=== PATIENT | female | born 1995 | race Caucasian/White ===

== ENCOUNTER 2016-03-04 08:53 | Emergency (ER) | END 2016-03-04 09:35 | disposition home or self-care (01) | DX: K62.5 Hemorrhage of anus and rectum (principal) ==

== ENCOUNTER 2016-06-15 22:37 | Emergency (ER) | payer OTHER ==
[~2016-06-15] VITALS: Ht 154.9 cm; Wt 56.0 kg
[~2016-06-15 22:37] MED LIST: DOCU-144 PO; HYDR25SU23 PR; IBUP-1542 PO
[2016-06-15 22:41] VITALS: Ht 154.9 cm; Wt 56.0 kg
[2016-06-15] MEDS ORDERED: PRED20TA PO (23:08)
[2016-06-15] MEDS ORDERED: TR1B60 TOP (23:09)
[2016-06-15] MEDS ORDERED: CETI10CA PO (23:09)
[2016-06-15] MEDS ORDERED: FAMO-18 PO (23:09)
--- NOTE | 2016-06-15 23:17 | ERD ---
ER Documentation Chief Complaint Date/Time DATE: 06/15/16 TIME: 23:12 Chief Complaint body rash x 1 month HPI Patient is a 21-year-old female who presents to the ED with rash on and off for the last month. She states that she developed a rash on her face and arms about a month ago and went to her primary care and was given Benadryl and hydrocortisone cream. She states that it helped with her symptoms however she developed a rash on her abdomen and now her upper arms in the last 2 days. She denies fever or chills. She denies abdominal pain nausea, vomiting or diarrhea. She denies tongue or lip swelling. She denies shortness of breath or difficulty breathing. She denies recent change in soaps or hygiene products or recent travel. She denies chest pain, shortness of breath. She denies leg pain or leg swelling. She has no other complaints. ROS All systems reviewed and are negative except as per history of present illness. Medications Home Meds Active Scripts Famotidine* (Pepcid*) 20 Mg Tablet, 20 MG PO BID for 10 Days, TAB Prov:KYLE TAI PA-C 06/15/16 Triamcinolone Acetonide (Triamcinolone Acetonide) 0.1% - 60 Ml Lotion, 1 APPLIC TOP BID, #1 BOTTLE Prov:KYLE TAI PA-C 06/15/16 Cetirizine Hcl* (Zyrtec*) 10 Mg Capsule, 10 MG PO DAILY, #20 TAB.CHEW Prov:KYLE TAI PA-C 06/15/16 Prednisone* (Prednisone*) 20 Mg Tab, 40 MG PO DAILY for 4 Days, TAB Prov:KYLE TAI PA-C 06/15/16 Hydrocortisone Acetate (Anusol-Hc) 25 Mg Supp.rect, 1 SUPP [place] QHS Y for HEMORROID PAIN/ITCHING, #12 SUPP.RECT Prov:MONALISA BANEGAS MD 03/04/16 Docusate Sodium* (Colace*) 100 Mg Capsule, 100 MG PO BID, #10 CAP Prov:JAVIER ZHANG NP 12/31/15 Ibuprofen* (Motrin*) 600 Mg Tab, 600 MG PO Q8, #30 TAB Prov:JAVIER ZHANG NP 12/31/15 Allergies Allergies: Coded Allergies: No Known Allergy (Unverified , 06/15/16) PMhx/Soc Medical and Surgical Hx: pt denies Medical Hx, pt denies Surgical Hx History of Surgery: No Anesthesia Reaction: No Hx Neurological Disorder: No Hx Respiratory Disorders: No Hx Cardiac Disorders: No Hx Psychiatric Problems: No Hx Miscellaneous Medical Probl: No Hx Alcohol Use: No Hx Substance Use: No Hx Tobacco Use: No Smoking Status: Never smoker FmHx Family History: No coronary disease, No diabetes, No other Physical Exam Vitals Vital Signs Date Time Temp Pulse Resp B/P Pulse Ox O2 Delivery O2 Flow Rate FiO2 06/15/16 22:41 98.2 105 20 135/65 100 Physical Exam GENERAL: Well-developed, well-nourished female. Appears in no acute distress. EYES: Pupils are equally reactive bilaterally. EOMs grossly intact. No conjunctival erythema. ENT: Moist mucous membranes. No uvula deviation. No kissing tonsils. No exudates. No tongue or lip swelling no angioedema NECK: Supple. No lymphadenopathy or thyromegaly. No meningismus. negative kernig. negative brudinski. LUNG: Clear to auscultation bilaterally. No rhonchi, wheezing, rales or coarse breath sounds. No stridor HEART: Regular rate and rhythm. No murmurs, rubs or gallops. Extremities: Equal pulses bilaterally. No peripheral clubbing, cyanosis or edema. No unilateral leg swelling. NEUROLOGIC: Alert and oriented. Moving all four extremities. 5/5 strength in all extremities. Normal speech. Steady gait. SKIN: Normal color. Warm and dry. Erythematous wheal-like rash on the abdomen. No surrounding erythema. No streaking. Capillary refill < 2 seconds Procedures/MDM ER COURSE: I kept the patient and/or family informed of laboratory and diagnostic imaging results throughout the emergency room course. MEDICAL DECISION MAKING: This is a 21-year-old female who presents with rash 1 month on and off. Vital signs were reviewed. Patient is afebrile. Patient is not hypoxic. Patient is not toxic or ill-appearing. Patient's rash is of unknown etiology likely urticaria due to an allergic reaction. Low suspicion for necrotizing fasciitis , SJS, toxic epidermal necrolysis, Kawasaki, erythema multiforme, gangrene, scarlet fever, meningococcemia, sepsis, anaphylaxis, sepsis, deep space infection, or foreign body. I have low suspicion for angioedema or anaphylaxis. Patient does not have stridor, tongue or lip swelling and is speaking in full sentences. DISCHARGE: At this time, patient is stable for discharge and outpatient management with no new complaints during the ER course. 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 Patient will be discharged home with instructions to recheck for new or worsening symptoms such as fever, nausea, weakness, LOC and to follow up with primary care in the next 1-2 days. Patient was advised to return to the ER for any new or worsening symptoms. Plan was discussed and patient and/or family understands and agrees. Home instructions were given. Departure Diagnosis: Primary Impression: Rash Condition: Stable Patient Instructions: Self-Care for Skin Rashes Additional Instructions: Llame al doctor MAANA y nawaf torey SUSAN PARA DENTRO DE 1-2 RIOS.Dgale a la secretaria que nosotros le instruimos hacer esta susan.Avise o llame si carranza condicin se empeora antes de la susan. Regresa aqui si peor o no mejor. KYLE TAI PA-C June 15, 2016 23:17
== END 2016-06-15 23:24 | disposition home or self-care (01) ==
LOC: FTE 22:37
DX: R21 Rash and other nonspecific skin eruption (principal)
CPT/HCPCS: 99284

== ENCOUNTER 2017-03-07 13:05 | Emergency (ER) | END 2017-03-07 14:38 | disposition home or self-care (01) ==

== ENCOUNTER 2017-06-15 17:41 | Emergency (ER) | END 2017-06-15 22:50 | disposition home or self-care (01) ==

== ENCOUNTER 2018-05-11 00:04 | Emergency (ER) | payer OTHER ==
[~2018-05-11] VITALS: Ht 154.9 cm; Wt 59.6 kg
[~2018-05-11 00:04] MED LIST changes: +ACET500C5 PO; +ALBU18HF INHALATION; +CETI10CA PO; +FAMO-96 PO; +GUAI-106 PO; +IPRA15SP NS; +NAPR-985 PO; +PRED20TA PO; +TR1B60 TOP
[2018-05-11 00:19] VITALS: BP 119/85; PULSE 77; RESP 20; Ht 154.9 cm; Wt 59.6 kg
--- NOTE | 2018-05-11 03:04 | ERD ---
ER Documentation Chief Complaint Chief Complaint cough x 2 days HPI 23-year-old female, previously healthy, presents the emergency department, complaining of persistent upper respiratory symptoms for 2 weeks including productive cough and general malaise. The patient reports that during the last 2 days she developed significant sore throat, associated with fever, T-max 102, headache and body aches. The patient has been taking [id number]-[id number] medication without improvement of the symptoms. ROS All systems reviewed and are negative except as per history of present illness. Medications Home Meds Active Scripts Promethazine Hcl* (Promethazine Hcl* Syrup) 6.25 Mg/5 Ml Syrup, 12.5 MG PO QHS PRN for COUGH for 5 Days, #60 ML Prov:NORTH SKINNER MD 05/11/18 Fluconazole* (Diflucan*) 150 Mg Tablet, 150 MG PO ONCE, #1 TAB Prov:NORTH SKINNER MD 05/11/18 Ibuprofen* (Motrin*) 400 Mg Tab, 400 MG PO Q6H PRN for PAIN AND OR ELEVATED TEMP, #20 TAB Prov:NORTH SKINNER MD 05/11/18 Cetirizine Hcl* (Zyrtec*) 10 Mg Capsule, 10 MG PO DAILY, #10 TAB.CHEW Prov:NORTH SKINNER MD 05/11/18 Amoxicillin* (Amoxicillin*) 500 Mg Cap, 500 MG PO TID for 7 Days, CAP Prov:NORTH SKINNER MD 05/11/18 Naproxen* (Naprosyn*) 500 Mg Tablet, 500 MG PO BID PRN for PAIN AND/OR INFLAMMATION for 5 Days, #10 TAB Prov:NORTH SKINNER MD 06/15/17 Acetaminophen* (Tylophen*) 500 Mg Capsule, 2 CAP PO Q8H PRN for PAIN AND OR ELEVATED TEMP, #20 CAP Prov:MANJINDER,DURGA 03/07/17 Ibuprofen* (Motrin*) 600 Mg Tab, 600 MG PO Q6, #30 TAB Prov:MANJINDER,DURGA 03/07/17 Albuterol Sulfate* (Ventolin HFA*) 18 Gm Hfa.aer.ad, 2 PUFF INHALATION Q4H, #1 INHALER Prov:MANJINDER,DURGA 03/07/17 Guaifenesin/Pseudoephedrne HCl (Mucinex D ER 1,200-120 mg Tab) 1 Each Tab.er.12h, 1 EACH PO BID for 5 Days, TAB Prov:MANJINDER,DURGA 03/07/17 Ipratropium [place] (Ipratropium [place]) 15 Ml [place], 15 ML NS 2 squrts QID for 7 Days, #1 SPRAY Prov:MANJINDER,DURGA 03/07/17 Famotidine* (Pepcid*) 20 Mg Tablet, 20 MG PO BID for 10 Days, TAB Prov:KYLE TAI PA-C 06/15/16 Triamcinolone Acetonide (Triamcinolone Acetonide) 0.1% - 60 Ml Lotion, 1 APPLIC TOP BID, #1 BOTTLE Prov:KYLE TAI PA-C 06/15/16 Cetirizine Hcl* (Zyrtec*) 10 Mg Capsule, 10 MG PO DAILY, #20 TAB.CHEW Prov:KYLE TAI PA-C 06/15/16 Prednisone* (Prednisone*) 20 Mg Tab, 40 MG PO DAILY for 4 Days, TAB Prov:KYLE TAIC 06/15/16 Hydrocortisone Acetate (Anusol-Hc) 25 Mg Supp.rect, 1 SUPP [place] QHS PRN for HEMORROID PAIN/ITCHING, #12 SUPP.RECT Prov:MONALISA BANEGAS MD 03/04/16 Docusate Sodium* (Colace*) 100 Mg Capsule, 100 MG PO BID, #10 CAP Prov:JAVIER ZHANG NP 12/31/15 Ibuprofen* (Motrin*) 600 Mg Tab, 600 MG PO Q8, #30 TAB Prov:JAVIER ZHANG NP 12/31/15 Allergies Allergies: Coded Allergies: No Known Allergy (Unverified , 06/15/16) PMhx/Soc Medical and Surgical Hx: pt denies Medical Hx, pt denies Surgical Hx History of Surgery: No Anesthesia Reaction: No Hx Neurological Disorder: No Hx Respiratory Disorders: No Hx Cardiac Disorders: No Hx Psychiatric Problems: No Hx Miscellaneous Medical Probl: No Hx Alcohol Use: No Hx Substance Use: No Hx Tobacco Use: No Smoking Status: Never smoker FmHx Family History: No diabetes, No coronary disease Physical Exam Vitals Vital Signs Date Temp Pulse Resp B/P (MAP) Pulse Ox O2 O2 Flow FiO2 Time Delivery Rate 05/11/18 98.4 77 20 119/85 98 00:19 (96) Physical Exam Patient is in moderate distress due to fever, vital signs showed fever. EYES: PERRLA, EOMI, injected sclerae EARS: Canals clear, erythematous tympanic membranes THROAT: Erythematous oropharynx with bilateral exudates NECK: Supple, + tender cervical lymphadenopathy. Full ROM without pain or tenderness. HEART: RRR, no rubs, murmurs, clicks or gallops. LUNGS: Bilateral rhonchi to auscultation. ABDOMEN: Soft, non-tender without masses or hepatosplenomegaly. EXTREMITIES: No edema bilaterally. BACK: Full ROM, no deformity, normal back exam NEURO: Cranial nerves grossly intact, no motor or sensory deficit Procedures/MDM Differential diagnosis include but not limited to: Tonsillar/pharyngeal infection bacterial/viral/fungal, parotitis, allergies, GERD. Less likely peritonsillar abscess, retropharyngeal abscess. No signs of upper respiratory obstruction Physical examination and clinical presentation consistent most likely with thrush and acute suppurative tonsillitis. Centor criteria 4/5. During the ED course the patient remained stable. Clinical impression discussed with patient who agrees with management. The patient is stable to be treated outpatient and will be discharged home with a Rx for antibiotic and ibuprofen. Some side effects of prescribed medications (headache, rash, nausea, vomiting, diarrhea, drowsiness, habituation, bleeding, hypertension, interactions with other medications) were reviewed. The patient was instructed to follow up with the primary care provider in the next 48h. If symptoms persist, worsen or new symptoms develop, then patient should return to the ED immediately. Disclaimer: Inadvertent spelling and grammatical errors are likely due to EHR/dictation software use and do not reflect on the overall quality of patient care. Also, please note that the electronic time recorded on this note does not necessarily reflect the actual time of the patient encounter. Departure Diagnosis: Primary Impression: Acute suppurative tonsillitis Additional Impression: Thrush, oral Condition: Stable Additional Instructions: Thank you very much for allowing us to participate in your care. Your health and safety is our top priority at [facility] [place]. Call your primary care doctor TOMORROW for an appointment during the next 2-4 days and bring all the information and medications prescribed. Have prescriptions filled and follow precisely the directions on the label. If the symptoms get worse and your provider is unavailable, return to the Emergency Department immediately. NORTH SKINNER MD May 11, 2018 03:04
[2018-05-11] MEDS ORDERED: CETI10CA PO (03:06)
[2018-05-11] MEDS ORDERED: AMOX500C2 PO (03:06)
[2018-05-11] MEDS ORDERED: FLUC150T PO (03:06)
[2018-05-11] MEDS ORDERED: IBUP-1561 PO (03:06)
[2018-05-11] MEDS ORDERED: PROM6.2515 PO (03:09)
== END 2018-05-11 03:26 | disposition home or self-care (01) ==
LOC: FTE 00:04
DX: J03.90 Acute tonsillitis, unspecified (principal); B37.0 Candidal stomatitis
CPT/HCPCS: 99283

== ENCOUNTER 2018-07-22 03:13 | Emergency (ER) | payer OTHER ==
[~2018-07-22] VITALS: Ht 154.9 cm; Wt 57.9 kg
[~2018-07-22 03:13] MED LIST changes: +AMOX500C2 PO; +FLUC150T PO; +IBUP-1561 PO; +PROM6.2515 PO
[2018-07-22 03:16] VITALS: Ht 154.9 cm; Wt 57.9 kg
[2018-07-22] MEDS ORDERED: SOD CHLORIDE 0.9% 1,000 ML IV STA (04:15)
[2018-07-22] MEDS ORDERED: ONDANSETRON 4 MG INJ IV STA (04:15)
--- NOTE | 2018-07-22 04:19 | ERD ---
ER Documentation Chief Complaint Chief Complaint VOMITING, CRAMPS X'S 7 HOURS HPI 23-year-old female presents with complaint of vomiting, abdominal cramps, and diarrhea, for the past 7 hours. States that the pain started after she ate chicken that her mom made. Says that the vomitus is clear. Says that she took "pink medicine" but it did not help with her symptoms. Denies any hematochezia, hematemesis, anorexia, vaginal discharge, pelvic pain, rashes, dysuria, hematuria, fevers, chills. ROS All systems reviewed and are negative except as per history of present illness. Medications Home Meds Active Scripts Ondansetron (Ondansetron Odt) 8 Mg Tab.rapdis, 8 MG PO Q6H PRN for NAUSEA AND/OR VOMITING, #10 TAB Prov:JOVANNA MAGDALENO 07/22/18 Promethazine Hcl* (Promethazine Hcl* Syrup) 6.25 Mg/5 Ml Syrup, 12.5 MG PO QHS PRN for COUGH for 5 Days, #60 ML Prov:NORTH SKINNER MD 05/11/18 Fluconazole* (Diflucan*) 150 Mg Tablet, 150 MG PO ONCE, #1 TAB Prov:NORTH SKINNER MD 05/11/18 Ibuprofen* (Motrin*) 400 Mg Tab, 400 MG PO Q6H PRN for PAIN AND OR ELEVATED TEMP, #20 TAB Prov:NORTH SKINNER MD 05/11/18 Cetirizine Hcl* (Zyrtec*) 10 Mg Capsule, 10 MG PO DAILY, #10 TAB.CHEW Prov:NORTH SKINNER MD 05/11/18 Amoxicillin* (Amoxicillin*) 500 Mg Cap, 500 MG PO TID for 7 Days, CAP Prov:NORTH SKINNER MD 05/11/18 Naproxen* (Naprosyn*) 500 Mg Tablet, 500 MG PO BID PRN for PAIN AND/OR INFLAMMATION for 5 Days, #10 TAB Prov:NORTH SKINNER MD 06/15/17 Acetaminophen* (Tylophen*) 500 Mg Capsule, 2 CAP PO Q8H PRN for PAIN AND OR ELEVATED TEMP, #20 CAP Prov:MANJINDER,DURGA 03/07/17 Ibuprofen* (Motrin*) 600 Mg Tab, 600 MG PO Q6, #30 TAB Prov:MANJINDER,DURGA 03/07/17 Albuterol Sulfate* (Ventolin HFA*) 18 Gm Hfa.aer.ad, 2 PUFF INHALATION Q4H, #1 INHALER Prov:MANJINDER,DURGA 03/07/17 Guaifenesin/Pseudoephedrne HCl (Mucinex D ER 1,200-120 mg Tab) 1 Each Tab.er.12h, 1 EACH PO BID for 5 Days, TAB Prov:MANJINDER,DURGA 03/07/17 Ipratropium [place] (Ipratropium [place]) 15 Ml [place], 15 ML NS 2 squrts QID for 7 Days, #1 SPRAY Prov:MANJINDER,DURGA 03/07/17 Famotidine* (Pepcid*) 20 Mg Tablet, 20 MG PO BID for 10 Days, TAB Prov:KYLE TAI PA-C 06/15/16 Triamcinolone Acetonide (Triamcinolone Acetonide) 0.1% - 60 Ml Lotion, 1 APPLIC TOP BID, #1 BOTTLE Prov:KYLE TAI PA-C 06/15/16 Cetirizine Hcl* (Zyrtec*) 10 Mg Capsule, 10 MG PO DAILY, #20 TAB.CHEW Prov:KYLE TAI PA-C 06/15/16 Prednisone* (Prednisone*) 20 Mg Tab, 40 MG PO DAILY for 4 Days, TAB Prov:KYLE TAI PA-C 06/15/16 Hydrocortisone Acetate (Anusol-Hc) 25 Mg Supp.rect, 1 SUPP [place] QHS PRN for HEMORROID PAIN/ITCHING, #12 SUPP.RECT Prov:MONALISA BANEGAS MD 03/04/16 Docusate Sodium* (Colace*) 100 Mg Capsule, 100 MG PO BID, #10 CAP Prov:JAVIER ZHANG, CAD DRAFTER 12/31/15 Ibuprofen* (Motrin*) 600 Mg Tab, 600 MG PO Q8, #30 TAB Prov:JAVIER ZHANG, MERARI 12/31/15 Allergies Allergies: Coded Allergies: No Known Allergy (Unverified , 06/15/16) PMhx/Soc History of Surgery: No Anesthesia Reaction: No Hx Neurological Disorder: No Hx Respiratory Disorders: No Hx Cardiac Disorders: No Hx Psychiatric Problems: No Hx Miscellaneous Medical Probl: No Hx Alcohol Use: No Hx Substance Use: No Hx Tobacco Use: No FmHx Family History: No diabetes, No coronary disease, No other Physical Exam Vitals Vital Signs Date Temp Pulse Resp B/P (MAP) Pulse Ox O2 O2 Flow FiO2 Time Delivery Rate 07/22/18 98.3 88 18 103/59 99 05:56 (74) 07/22/18 99.5 134 18 123/84 96 03:16 (97) Physical Exam Const: No acute distress Head: Atraumatic Eyes: Normal Conjunctiva ENT: Normal External Ears, Nose and Mouth. Neck: Full range of motion. No meningismus. Resp: Clear to auscultation bilaterally Cardio: Regular rate and rhythm, no murmurs Abd: Soft, non tender, non distended. Normal bowel sounds Skin: No petechiae or rashes Back: No midline or flank tenderness Ext: No cyanosis, or edema Neur: Awake and alert Psych: Normal Mood and Affect Result Diagram: 07/22/18 0428 07/22/18 0428 Results 24 hrs Laboratory Tests Test 07/22/18 04:19 07/22/18 04:28 07/22/18 04:45 POC Beta HCG, Qualitative NEGATIVE White Blood Count 9.5 10^3/ul Red Blood Count 5.01 10^6/ul Hemoglobin 14.0 g/dl Hematocrit 42.5 % Mean Corpuscular Volume 84.8 fl Mean Corpuscular Hemoglobin 27.9 pg Mean Corpuscular 32.9 g/dl Hemoglobin Concent Red Cell Distribution Width 14.1 % Platelet Count 278 10^3/UL Mean Platelet Volume 11.1 fl Immature Granulocytes % 0.200 % Neutrophils % 89.5 % Lymphocytes % 6.2 % Monocytes % 3.8 % Eosinophils % 0.2 % Basophils % 0.1 % Nucleated Red Blood Cells % 0.0 /100WBC Immature Granulocytes # 0.020 10^3/ul Neutrophils # 8.5 10^3/ul Lymphocytes # 0.6 10^3/ul Monocytes # 0.4 10^3/ul Eosinophils # 0.0 10^3/ul Basophils # 0.0 10^3/ul Nucleated Red Blood Cells # 0.0 10^3/ul Sodium Level 142 mmol/L Potassium Level 4.1 mmol/L Chloride Level 103 mmol/L Carbon Dioxide Level 26 mmol/L Anion Gap 13 Blood Urea Nitrogen 8 mg/dl Creatinine 0.72 mg/dl Est Glomerular Filtrat > 60 mL/min Rate mL/min Glucose Level 117 mg/dl Calcium Level 9.6 mg/dl Total Bilirubin 0.9 mg/dl Direct Bilirubin 0.00 mg/dl Indirect Bilirubin 0.9 mg/dl Aspartate Amino 22 IU/L Transf (AST/SGOT) Alanine 22 IU/L Aminotransferase (ALT/SGPT) Alkaline Phosphatase 85 IU/L Total Protein 8.3 g/dl Albumin 4.7 g/dl Globulin 3.60 g/dl Albumin/Globulin Ratio 1.30 Lipase 55 U/L Urine Color YELLOW Urine Clarity SLIGHTLY CLOUDY Urine pH 8.0 Urine Specific [place] 1.027 Urine Ketones 1+ mg/dL Urine Nitrite NEGATIVE mg/dL Urine Bilirubin NEGATIVE mg/dL Urine Urobilinogen 2+ mg/dL Urine Leukocyte Esterase NEGATIVE Naveed/ul Urine Microscopic RBC 1 /HPF Urine Microscopic WBC 1 /HPF Urine Squamous Epithelial Cells FEW /HPF Urine Mucus FEW /HPF Urine Hemoglobin 1+ mg/dL Urine Glucose NEGATIVE mg/dL Urine Total Protein 1+ mg/dl Current Medications Medications Dose Sig/Jeannette Start Time Status Last (Trade) Ordered Route PRN Stop Time Admin Dose Reason Admin Sodium 1,000 ml @ Q1H STAT 07/22/18 DC 07/22/18 Chloride 1,000 mls/hr IV 04:15 04:31 07/22/18 05:14 Ondansetron 4 mg ONCE STAT 07/22/18 DC 07/22/18 HCl (Zofran IV 04:15 04:34 Inj) 07/22/18 04:17 Procedures/MDM MDM: Patient had no McBurney's tenderness and was able to jump up and down on exam. In addition, patient had no other abdominal tenderness and had a totally normal abdominal exam without any guarding, rigidity, or tenderness to palpation. In addition patient had no anorexia, fevers, or white count. Therefore, my suspicion for appendicitis is very low. To note, patient was tachycardic but heart rate went down after IV fluids. Therefore, I have low suspicion for sepsis or shock. patient most likely suffering with gastroenteritis secondary to something she ate yesterday. I have low suspicion for acute coronary syndrome, AAA, mesenteric ischemia, lower lobe pneumonia, DKA, bowel perforation, cholecystitis, choledocholithiasis, ascending cholangitis, hepatic abscess, pancreatitis, PUD, splenic rupture, diverticulitis, pyelonephritis, nephrolithiasis, appendicitis, , ectopic , PID, ovarian torsion or tubo-ovarian abscess. I advised patient to return to ER in 24 hours if she experiences any abdominal pain, fevers, or continued vomiting. At this time, patient is stable for discharge and outpatient management. I have instructed the patient to follow-up with his/her primary care physician in 1-2 days. I have discussed with the patient the possibility of needing to see a specialist for further workup and imaging studies if symptoms persist. I have instructed the patient to promptly return to the ER for any new or worsening symptoms including but not limited to increased pain, fever, nausea, vomiting, weakness or LOC. The patient and/or family expressed understanding of and agreement with this plan. All questions were answered. Home care instructions were provided. DISCLAIMER: Inadvertent spelling and grammatical errors are likely due to EHR/dictation software use and do not reflect on the overall quality of patient care. Also, please note that the electronic time recorded on this note does not necessarily reflect the actual time of the patient encounter. Departure Diagnosis: Primary Impression: Gastroenteritis Condition: Naheed JOVANNA MAGDALENO Jul 22, 2018 04:19
[2018-07-22] MEDS ORDERED: ONDA8TAB14 PO (05:29)
[2018-07-22 05:56] VITALS: BP 103/59; PULSE 88; RESP 18
== END 2018-07-22 05:56 | disposition home or self-care (01) ==
LOC: FTE 03:13
DX: K52.9 Noninfective gastroenteritis and colitis, unspecified (principal)
CPT/HCPCS: 36415; 80053; 81001; 81025; 83690; 85025; 96374; J2405; J7030; Z7502